=== PATIENT | male | born 1975 | race Caucasian/White ===

== ENCOUNTER 2018-01-10 09:35 | Emergency (ER) | payer MEDICAID ==
[~2018-01-10] VITALS: Ht 170.2 cm; Wt 77.0 kg
[2018-01-10 09:39] VITALS: BP 122/75; PULSE 71; RESP 16; TEMP 97.9; O2SAT 99
[2018-01-10] MEDS ORDERED: NOVOLOGP2 SQ ×2 (09:55→10:25)
[2018-01-10] MEDS ORDERED: LANTUS2P SQ ×2 (09:55→10:25)
--- NOTE | 2018-01-10 10:26 | PD ---
HPI Chief Complaint: Cold / Flu Symptoms Time Seen by Provider: 10:09 Travel History International Travel<30 days: No Contact w/Intl Traveler<30days: No Traveled to known affect area: No History of Present Illness HPI 42-year-old male with history of insulin-dependent diabetes here for evaluation of mild upper respiratory infection and requesting refill of his NovoLog and Lantus. He reports he relocated from [place] and is going to run out of his insulin this week. He denies fever chills. He reports no change in his blood sugars. He has mild nasal congestion, sneezing, cough for last 3 days. No aggravating or alleviating factors. No symptoms of hypo-/hyperglycemia PFSH Past Medical History Medical History: Denies Significant Hx Diabetes: Yes Patient Takes Glucophage: No Diminished Hearing: No Hepatitis: Yes (C) Influenza Vaccination: No ?: Not Past Surgical History Oral Surgery: Yes (Jaw wired) Social History Alcohol Use: No Tobacco Use: Yes Substance Use: No Allergies-Medications (Allergen,Severity, Reaction): Coded Allergies: Penicillins (Verified Allergy, Unknown, 01/10/18) Reported Meds & Prescriptions Reported Meds & Active Scripts Active Novolog Inj (Insulin Aspart) 1,000 Unit/10 Ml Vial 0 SQ DIRECTED Sliding Scale as directed. Lantus Inj (Insulin Glargine) 1,000 Unit/10 Ml Vial 30 Units SQ HS Reported Lantus Inj (Insulin Glargine) 1,000 Unit/10 Ml Vial 30 Units SQ HS Novolog Inj (Insulin Aspart) 1,000 Unit/10 Ml Vial 0 SQ DIRECTED Sliding Scale as directed. Review of Systems Except as stated in HPI: all other systems reviewed are Neg General / Constitutional: No: Fever Eyes: No: Visual changes HENT: Positive: Congestion Cardiovascular: No: Chest Pain or Discomfort Respiratory: Positive: Cough Gastrointestinal: No: Abdominal Pain Physical Exam Narrative GENERAL: Alert and well-appearing 42-year-old male SKIN: Warm and dry. HEAD: Normocephalic. EYES: No injection or drainage. Ear/nose/throat: No TM erythema. Clear nasal discharge. No pharyngeal erythema. No tonsillar hypertrophy or exudate. Uvula is midline. Airways patent. NECK: Supple, trachea midline. No JVD or lymphadenopathy. CARDIOVASCULAR: Regular rate and rhythm without murmurs, gallops, or rubs. RESPIRATORY: Breath sounds equal bilaterally. No accessory muscle use. GASTROINTESTINAL: Abdomen soft, non-tender, nondistended. MUSCULOSKELETAL: No cyanosis, or edema. BACK: Nontender without obvious deformity. No CVA tenderness. Data Data Last Documented VS Vital Signs Date Time Temp Pulse Resp B/P (MAP) Pulse Ox O2 Delivery O2 Flow Rate FiO2 01/10/18 09:48 Room Air 01/10/18 09:39 97.9 71 16 122/75 (91) 99 MDM Medical Decision Making Medical Screen Exam Complete: Yes Emergency Medical Condition: Yes Differential Diagnosis Upper respiratory infection, medication refill, other Narrative Course 42-year-old male with a history of insulin-dependent diabetes recently relocated from [facility]. Here with mild upper respiratory infection and requesting refill of his NovoLog and Lantus. Patient has both NovoLog and Lantus viles for verification. Accu-Chek was 112. Case management discussed clinic options and prescription financial help. Diagnosis Primary Impression: Medication refill Additional Impression: URI (upper respiratory infection) Qualified Codes: J06.9 - Acute upper respiratory infection, unspecified Referrals: [facility] Additional Instructions: Medication as directed. Follow-up with his a clinic. Return to emergency department if he develop new or worsening symptoms. Scripts Insulin Aspart Inj (Novolog Inj) 1,000 Unit/10 Ml Vial 0 SQ DIRECTED for Blood Sugar Management, #10 ML 0 Refills Sliding Scale as directed. Prov: Christiana Landry 01/10/18 Insulin Glargine Inj (Lantus Inj) 1,000 Unit/10 Ml Vial 30 UNITS SQ HS for Blood Sugar Management, #1 VIAL 0 Refills Prov: Christiana Landry 01/10/18 Christiana Landry Jan 10, 2018 10:26
== END 2018-01-10 10:57 | disposition home or self-care (01) ==
LOC: PHEFT 09:35
DX: J06.9 Acute upper respiratory infection, unspecified (principal); E11.9 Type 2 diabetes mellitus without complications; Z76.0 Encounter for issue of repeat prescription; Z72.0 Tobacco use
CPT/HCPCS: 99281